=== PATIENT | female | born 1970 | race Caucasian/White ===

== ENCOUNTER 2017-10-05 06:49 | Day surgery (SDC) | payer BC ==
--- NOTE | 2017-10-05 06:32 | History and Physical Report ---
DATE: 10/05/2017. CHIEF COMPLAINT AND HISTORY OF CHIEF COMPLAINT: This patient presents with a history of an intractable occipital neuralgia along with cervical radiculopathy. Two spinal cord stimulators, occipital and cervical, are in place. A battery generator placed in the posterior gluteal margin has become quite troublesome and painful. Despite efforts at desensitizing the area, it has become unmanageable by the patient. She is here for a relocation of the generator to the abdominal wall along with change of the generator from a previous older style to the new WaveRider generator which has greater programming capabilities and stimulation capabilities to improve overall pain control. PAST MEDICAL HISTORY: Hypothyroidism, irritable bowel syndrome, chronic headaches. PAST SURGICAL HISTORY: Arthroscopic surgery of the leg, spinal cord stimulator placement. MEDICATIONS ON ADMISSION: To be provided. ALLERGIES: Penicillin, codeine, and Vicodin. SOCIAL HISTORY: Caffeine. FAMILY HISTORY: Thyroid, diabetes, coronary artery disease, hypertension. REVIEW OF SYSTEMS: The patient appears appropriate and in no acute distress. The remainder of the systems review shows glasses, headaches, thyroid disease, asthma, abdominal pain, and degenerative arthritis. PHYSICAL EXAMINATION: General: Height and weight are not known. Vital Signs: Not available. HEENT: Within normal limits. Lungs: Clear. Heart: Regular rate and rhythm. Abdomen: Nontender. Musculoskeletal: Examination of the musculoskeletal system shows the current pouch in the left posterior gluteal margin. The site appears to be somewhat irritated; although there is no breakdown of the skin and no infection. She is requesting a lower abdominal quadrant placement. There is a previous pouch noted with no components within the pouch. The pain pattern appears to be cervical with a bilateral shoulder and upper extremity component. Neurologic: Cranial nerves are intact. IMPRESSION: 1. INTRACTABLE CERVICAL RADICULITIS, ICD-10 CODE M54.12. 2. OCCIPITAL NEURALGIA WITH HEADACHES, ICD-10 CODE M54.81. 3. PERIPHERAL NERVE SPINAL CORD STIMULATOR BATTERY POUCH PAIN. PLAN: The patient is here for relocation of the battery from the posterior gluteal margin to the abdominal wall. Along with that, we will change the battery from a previous older style to the new WaveRider technology which will dramatically improve programming capabilities and will improve pain control. The procedure will be considered outpatient; although an overnight stay will be evaluated. The potential risks, side effects, and complications have been reviewed. JOB NUMBER: [id number] cc: Donna Cline M.D. [facility]
[~2017-10-05 06:49] MED LIST: ACETAMINOPHEN 1,000 MG/100 ML BTL IV ONE; CLINDAMYCIN 600MG/50ML PREMIX 600 MG/50 ML BAG IVPB ONE; FAMOTIDINE 20MG TABLET PO ONE; MECLIZINE 25 MG TABLET PO ONE; METOCLOPRAMIDE 10 MG TABLET PO ONE
[2017-10-05] MEDS ORDERED: ONDANSETRON HCL IV 4 MG/2 ML VIAL IVP ONE (06:50)
[2017-10-05] MEDS ORDERED: FENTANYL PF 100MCG/2ML VIAL IV ONE (06:50)
[2017-10-05] MEDS ORDERED: CLINDAMYCIN (PEDIATRIC DOSING) 150 MG/ML VIAL IVPB ONE (06:50)
[2017-10-05] MEDS ORDERED: PROPOFOL 10 MG/ML VIAL IV ONE (06:50)
[2017-10-05] MEDS ORDERED: BUPIVACAINE 0.5% W/EPI MPF 30 ML VIAL IVP ONE (06:50)
[2017-10-05] MEDS ORDERED: KETOROLAC 30 MG/ML VIAL IVP ONE (06:50)
[2017-10-05] MEDS ORDERED: *PACU ONLY* KETAMINE HCL 10 MG/ML (20ML) VIAL IV ONE (06:50)
[2017-10-05] MEDS ORDERED: LIDOCAINE 2% MDV (20MG/ML) 20ML VIAL IV ONE (06:50)
[2017-10-05] MEDS ORDERED: LIDOCAINE 1% W/EPI 1:200,000 MPF 30ML SQ ONE (06:50)
[2017-10-05] MEDS ORDERED: MIDAZOLAM HCL 2MG/2ML VIAL IV ONE (06:50)
--- NOTE | 2017-10-05 16:20 | Operative Note - Ferro ---
DATE OF SURGERY: 10/05/17 PREOPERATIVE DIAGNOSES: 1. CERVICAL RADICULITIS, ICD-10 CODE = M54.12. 2. OCCIPITAL NEURALGIA WITH HEADACHES, ICD-10 CODE = M54.81. 3. CERVICAL SPINAL CORD STIMULATOR INTERNAL GENERATOR NONFUNCTIONAL. OPERATION: 1. INCISION, SUBCUTANEOUS DISSECTION, AND REMOVAL OF INTERNAL PULSE GENERATOR AT LEFT POSTERIOR GLUTEAL MARGIN. 2. INCISION, SUBCUTANEOUS DISSECTION, AND CREATION OF SUBCUTANEOUS POUCH AT LEFT LOWER ABDOMINAL QUADRANT FOR PLACEMENT OF GENERATOR IDENTIFIED A [employer] PROGRAMMABLE RECHARGEABLE WAVEWRITER. 3. INCISION, SUBCUTANEOUS DISSECTION, ANC CREATION OF SUBCUTANEOUS POUCH AT LEFT LOWER ABDOMINAL QUADRANT FOR TUNNELING BETWEEN POSTERIOR GLUTEAL MARGIN POUCH AND ABDOMINAL POUCH. 4. INTERFACE THREE STIMULATOR LEADS AT POSTERIOR GLUTEAL MARGIN POUCH WITH EXTENSIONS; EACH LEAD ONE EXTENSION. EXTENSIONS TUNNELED TO LEFT LOWER ABDOMINAL QUADRANT. 5. INTERFACE THREE LEAD EXTENSIONS TO INTERNAL PULSE GENERATOR. ANTIBIOTIC IRRIGATION AND BOVIE FOR HEMOSTASIS. PLACEMENT OF GENERATOR POUCH SECURED TO POSTERIOR FASCIA WITH NONABSORBABLE SUTURE. CLOSURE OF BOTH INCISIONS VICRYL FOR FASCIA AND SUBCUTICULAR VICRYL FOR SKIN. DERMABOND CLOSURE. 6. COMPLEX PROGRAMMING INTERNAL GENERATOR LEFT LOWER ABDOMINAL QUADRANT, RECOVERY ROOM, 20 MINUTES. SURGEON: BREANNA VILLEGAS D.O. ANESTHESIA: LOCAL SEDATION. ANESTHESIA PROVIDER: CHRISTIE CABALLERO CRNA. INDICATION: This patient with a history of intractable cervical radiculopathy has three stimulators; a single peripheral and two epidural leads. A generator at the left posterior gluteal margin has been malfunctioning along with which she has been quite painful and due to weight loss, there has been bruising and breakdown of the pouch although no violation of the pouch at the posterior gluteal margin. She is here for generator replacement updating to the new WaveWriter technology with approved stimulation properties and relocating the generator pouch from the left posterior gluteal margin to the left lower abdominal quadrant by patient request. PROCEDURE: Intravenous line, vital sign monitoring, IV sedation, prepped and draped in sterile technique. Patient position in the lateral position, left side up using a beanbag to facilitate position. Vital sign monitoring and sedation by Anesthesia. Sterile prep. Sterile technique. The left posterior margin incision was infiltrated, incision made, and subcutaneous dissection was conducted to the generator pouch, which was opened and the generator exteriorized. Three lead extensions to the generator were then from the generator and the generator removed from the field. At the left lower abdominal quadrant; site picked by the patient for the generator, skin infiltrated, incision made, and subcutaneous dissection was conducted to form a pouch of suitable size for the generator identified as a [employer] WaveWriter. A tunneling tool was then used to connect the pouches. Each of the three leads in the posterior gluteal margin pouch was then interfaced with a single extension; one lead, one extension. These extensions were tunneled to the abdominal quadrant. Each extension was then interfaced to the generator. Antibiotic irrigation and Bovie for hemostasis. The generator was placed into the pouch and secured to the fascia with nonabsorbable suture. Both incisions were then closed Vicryl for fascia and running subcuticular Vicryl for skin. Dermabond closure at each. She was transported to the Recovery Room stable showing no side-effects from the procedure. When awake and alert, complex programming of the generator over 20 minutes was performed re-establishing stimulation and pain control to all of the appropriate areas. She was instructed on the use of the system then provided with information on the generator and prepared for discharge. DISCHARGE INSTRUCTIONS: 1. Sites remain clean and dr although the Dermabond will allow showering. She should not sit or immerse in water. 2. Standard medications resumed including Clindamycin 300 mg, one t.i.d. for 14 days. 3. Activities should remain low limiting bend, lift, push, pull until she is seen in the office in 7-10 days. The office will contact the patient at home within the next 24-48 hours to set up this appointment. All other instructions provided, numbers to contact, problems given. She was then discharged. cc: Dr. Cline JOB NUMBER: [id number] [facility]
== END 2017-10-05 10:00 | disposition home or self-care (01) ==
LOC: SUR 06:49
PROVIDERS: ATTEND Pain Medicine Interventional Pain Medicine
DX: M54.12 Radiculopathy, cervical region (principal); M54.81 Occipital neuralgia; J45.909 Unspecified asthma, uncomplicated; E03.9 Hypothyroidism, unspecified; M32.9 Systemic lupus erythematosus, unspecified
CPT/HCPCS: 63685; 00300; 95972; 85002; J1885; J2405; J3010; C1820